=== PATIENT | male | born 1955 | race Caucasian/White ===

== ENCOUNTER → 2022-09-17 12:39 | Outpatient (CLI) | payer MEDICARE, OTHER, SELFPAY ==
--- NOTE | 2022-09-17 | DI.US.S_ITS ---
PROCEDURE: US CAROTID DOPPLER BI INDICATIONS: HYPERLIPIDEMIA/SCREENING FOR CARDIOVASCULAR DS TECHNIQUE: Color and pulse Doppler interrogation was performed of both carotid systems, with image documentation and velocity measurements. COMPARISON: None. FINDINGS: Stenosis calculations are based on SRU (S[employer] in [employer]) criteria. Right side: Brachial blood pressure: 117/85 mm Hg. Common carotid artery peak systolic velocity: 82.0 cm/sec. Internal carotid artery peak systolic velocity: 74.0 cm/sec. Internal carotid artery end diastolic velocity: 56.8 cm/sec. External carotid artery peak systolic velocity: 75.4 cm/sec. ICA/CCA peak systolic ratio: 0.9 . Morton scale imaging description: Atheromatous plaque is present at the carotid bifurcation. Percent internal carotid artery stenosis: Less than 50% stenosis. Vertebral artery: Flow direction is antegrade. Left side: Brachial blood pressure: 114/74 mm Hg. Common carotid artery peak systolic velocity: 78.2 cm/sec. Internal carotid artery peak systolic velocity: 48.9 cm/sec. Internal carotid artery end diastolic velocity: 65.5 cm/sec. External carotid artery peak systolic velocity: 62.9 cm/sec. ICA/CCA peak systolic ratio: 0.8 . Morton scale imaging description: Atheromatous plaque is present at the carotid bifurcation. Percent internal carotid artery stenosis: Less than 50% stenosis. Vertebral artery: Flow direction is antegrade. IMPRESSION: Less than 50% stenosis of the bilateral internal carotid arteries. Dictated by: Caitlin Lr M.D. on 09/17/2022 at 15:44 Approved by: Caitlin Lr M.D. on 09/17/2022 at 15:45
--- NOTE | 2022-09-17 | DI.US.S_ITS ---
PROCEDURE: US ABD AORTA ANEURYSM SCREEN INDICATIONS: HYPERLIPIDEMIA/SCREENING FOR CARDIOVASCULAR DS TECHNIQUE: Real time scanning was performed of the aorta and iliac arteries, with image documentation. COMPARISON: None. FINDINGS: Aorta: Proximal aortic diameter measures 2.0 cm. Mid-aorta measures 1.8 cm. Distal aortic diameter is 1.6 cm. Iliac arteries: Right common iliac artery measures 1.0 cm. Left common iliac artery measures 1.2 cm. IMPRESSION: No aneurysmal dilatation or ectasia of the abdominal aorta or the iliac arteries. Dictated by: Caitlin Lr M.D. on 09/17/2022 at 15:46 Approved by: Caitlin Lr M.D. on 09/17/2022 at 15:46
== END ==
PROVIDERS: PCP Physician Assistant Medical; Referring Provider Physician Assistant Medical; Visit Provider Physician Assistant Medical
DX: E78.5 Hyperlipidemia, unspecified (principal)
CPT/HCPCS: 76706; 93880